=== PATIENT | female | born 1965 | race Caucasian/White ===

== ENCOUNTER → 2016-10-15 | Outpatient (CLI) | payer BC ==
--- NOTE | 2016-10-21 12:04 | MM ---
Reason for exam: additional evaluation requested from prior study. Last mammogram was performed 1 year and 8 months ago. History: Patient is postmenopausal and is nulliparous. Family history of breast cancer in aunt at age 60 and breast cancer in cousin at age 50. Physical Findings: Nurse Summary: 0.5-1cm nodule in the right brast at 1, 2 o'clock, a 0.5cm nodule in the left breast at 9 o'clock (nurse kp). MG 3D Diag Mammo W/Cad ENE Bilateral CC and MLO view(s) were taken. Prior study comparison: October 01, 2015, ultrasound, performed at [facility]. February 19, 2015, mammogram, performed at [facility]. February 19, 2015, ultrasound, performed at [facility]. February 08, 2014, mammogram, performed at [facility]. The breast tissue is heterogeneously dense. This may lower the sensitivity of mammography. No suspicious calcifications are seen. Focal asymmetry in the upper right breast seen on MLO view. ASSESSMENT: Incomplete: need additional imaging evaluation, BI-RAD 0 RECOMMENDATION: Special view mammogram of the right breast. Manage patient on a clinical basis. If lesion persists on supplemental views, image directed ultrasound is recommended. [facility] will attempt to contact patient to return for supplemental views and ultrasound if indicated.
== END | disposition home or self-care (01) ==
LOC: RADMAMWWP 13:05
PROVIDERS: ATTEND Surgery Plastic and Reconstructive Surgery
DX: R92.8 Other abnormal and inconclusive findings on diagnostic imaging of breast (principal)
CPT/HCPCS: G0204; G0279

== ENCOUNTER → 2016-10-27 | Outpatient (CLI) | payer BC ==
--- NOTE | 2016-10-27 11:06 | MM ---
Reason for exam: additional evaluation requested from abnormal screening. Last mammogram was performed less than 1 month ago. History: Patient is postmenopausal and is nulliparous. Family history of breast cancer in aunt at age 60 and breast cancer in cousin at age 50. Physical Findings: Nurse Summary: 0.5cm nodule in the right breast at 1 o'clock and 3 o'clock and a 0.5cm nodule in the left breast at 9 o'clock (nurse mm). MG 3D Follow Up No Charge RT ML, spot compression CC, and spot compression MLO view(s) were taken of the right breast. Prior study comparison: October 15, 2016, bilateral MG 3d diag mammo w/cad ENE. February 19, 2015, mammogram, performed at [facility]. The breast tissue is heterogeneously dense. This may lower the sensitivity of mammography. There is no discrete abnormality including area of concern. These results were verbally communicated with the patient and result sheet given to the patient on 10/27/16. ASSESSMENT: Incomplete: need additional imaging evaluation, BI-RAD 0 RECOMMENDATION: Ultrasound of both breasts. (at palpable) Manage patient on a clinical basis.
--- NOTE | 2016-10-27 11:10 | USB ---
Reason for exam: additional evaluation requested from abnormal screening. History: Patient is postmenopausal and is nulliparous. Family history of breast cancer in aunt at age 60 and breast cancer in cousin at age 50. US Breast Limited BILAT Right breast ultrasound demonstrates no cystic or solid lesion seen. Left breast ultrasound demonstrates no cystic or solid lesion seen. These results were verbally communicated with the patient and result sheet given to the patient on 10/27/16. ASSESSMENT: Negative, BI-RAD 1 RECOMMENDATION: Routine screening mammogram of both breasts in 1 year. Manage patient on a clinical basis.
== END | disposition home or self-care (01) ==
LOC: RADMAMWWP 09:33
PROVIDERS: ATTEND Surgery Plastic and Reconstructive Surgery
DX: R92.8 Other abnormal and inconclusive findings on diagnostic imaging of breast (principal)

== ENCOUNTER → 2017-11-28 | Outpatient (CLI) | payer BC ==
--- NOTE | 2017-11-28 11:17 | MM ---
Reason for exam: additional evaluation requested from prior study. Last mammogram was performed 1 year and 1 month ago. History: Patient is postmenopausal and is nulliparous. Family history of breast cancer in aunt at age 60 and breast cancer in cousin at age 50. Took estrogen for 6 months beginning at age 30. Took progesterone for 6 months beginning at age 30. Physical Findings: Nurse did not find any significant physical abnormalities on exam. MG 3D Diag Mammo W/Cad ENE Bilateral CC and MLO view(s) were taken. Prior study comparison: October 27, 2016, right breast MG 3d follow up no charge RT. October 15, 2016, bilateral MG 3d diag mammo w/cad ENE. The breast tissue is heterogeneously dense. This may lower the sensitivity of mammography. There is chronic nodularity in the right breast. There is no dominant lesion. No significant new findings when compared with previous films. These results were verbally communicated with the patient and result sheet given to the patient on 11/28/17. ASSESSMENT: Benign, BI-RAD 2 RECOMMENDATION: Routine screening mammogram of both breasts in 1 year.
== END | disposition home or self-care (01) ==
LOC: RADMAMWWP 10:02
PROVIDERS: ATTEND Surgery Plastic and Reconstructive Surgery
DX: R92.8 Other abnormal and inconclusive findings on diagnostic imaging of breast (principal)
CPT/HCPCS: 77062; 77066

== ENCOUNTER → 2018-12-27 | Outpatient (CLI) | payer BC ==
--- NOTE | 2018-12-27 14:19 | MM ---
Reason for exam: screening (asymptomatic). Last mammogram was performed 1 year and 1 month ago. History: Patient is postmenopausal and is nulliparous. Family history of breast cancer in aunt at age 60 and breast cancer in cousin at age 50. Took estrogen for 6 months beginning at age 30. Took progesterone for 6 months beginning at age 30. Physical Findings: A clinical breast exam by your physician is recommended on an annual basis and results should be correlated with mammographic findings. MG 3D Screening Mammo W/Cad Bilateral CC and MLO view(s) were taken. Prior study comparison: November 28, 2017, bilateral MG 3d diag mammo w/cad ENE. October 27, 2016, right breast MG 3d follow up no charge RT. The breast tissue is heterogeneously dense. This may lower the sensitivity of mammography. There is chronic nodularity bilaterally. ASSESSMENT: Benign, BI-RAD 2 RECOMMENDATION: Routine screening mammogram of both breasts in 1 year.
== END | disposition home or self-care (01) ==
LOC: RADMAMWWP 09:50
PROVIDERS: ATTEND Surgery Plastic and Reconstructive Surgery
DX: Z12.31 Encounter for screening mammogram for malignant neoplasm of breast (principal)
CPT/HCPCS: 77063; 77067

== ENCOUNTER → 2022-05-19 | Outpatient (CLI) | payer BC ==
[2022-05-19 10:29] VITALS: BP 166/93; PULSE 80; RESP 18; TEMP 99.1
--- NOTE | 2022-05-19 10:37 | P.PAINPG ---
PQRS Measure Charge Sheet Comment: HISTORY OF PRESENT ILLNESS: 57 yr old female as a referral from Dr Bowser presents today w severe and chronic mid back pain secondary to anterolisthesis, DDD, spinal stenosis and facet arthropathy without myelopathy for evaluation. Pt states her pain level is currently at 6/10 in intensity, constant, localized in the mid aspect of the thoracic spine, sharp in character w shooting towards the L shoulder. Pain is provoked by twisting/ bending. Pain is alleviated by meds (Tramadol, Ibu, Tyl), topicals, ice, heat, PT x 8 wks in 2021, use of a TENS unit, laying supine, repositioning and rest. PMH: HTN, Hyperlipidemia, Asthma PSH: L5-S1 Decompression w Laminectomy (2015), C5-C6-C7 Hardware (2010), MVP SH: Hx of tobacco use (Quit 21 yrs ago), occasional ETOH use, No illicit drug use. FH: Mo- CHF. Fa- CHF/ DM. All: See list Meds: See list REVIEW OF ORGAN SYSTEMS: CONSTITUTIONAL: No fevers or chills. No recent weight loss. NEUROLOGICAL: + numbness and tingling along the distal extremities. No seizure disorders or headaches. MUSCULOSKELETAL: + pain PSYCHIATRIC: Denies current depression or suicidal thoughts. Physical Examinations : Constitutional : Cooperative , not in acute distress . Neurologic : Cranial nerve II to XII intact. No focal neurological deficits. Psychiatric : alert & oriented x 3. Matching mood & appropriate affect. Judgment & insight intact. Musculoskeletal : Cervical Spine Motor strength in the deltoid and biceps: Normal right side. Normal Left side Motor strength biceps and the wrist extensors: Normal right side . Normal left side Motor strength in the triceps muscle: Normal right side. Normal left side Deep tendon reflexes: Normal at the biceps. Normal at Brachioradialis. Normal at triceps Vertebral body tenderness to deep palpation over Cervical facet loading test: positive bilaterally Spurling test: positive bilaterally Neck distraction test: positive bilaterally Cheli sign: positive bilaterally Thoracic spine Vertebral body TTP over T9 Lumbar spine Motor strength lower extremities ,thigh and legs 5/5 Right side , 5/5 Left side Deep tendon reflexes : Normal Knee Jerk. Normal Ankle Jerk Vertebral body tenderness over Lumbar facet Loading Test: positive Right / positive Left Range of motion of the lumbar spine Flexion 30 degrees, extension 10 degrees Straight Leg Raise test: Left/ Right positive at degree Nael test: positive right / positive left. Severe tenderness over the Sacroiliac joint on the Right / Left sides Gaenslen test: positive bilaterally Seated flexion test: positive bilaterally. Sacral spine : Severe tenderness over the Sacroiliac joint: right side / left side Range of motion: Flexion of the lumbar spine <60 degrees Range of motion: Extension of the lumbar spine <20 degrees Gaenslen's Test positive Tim's Test positive Nael test: positive right side / left side Thigh Thrust Test Sacral Thrust Test Imaging: MRI without contrast of the thoracic spine from 03/26/22 reviewed Assessment/ Plan : Thoracic DDD Recommendation of CODIE T9-T10 #1. May need a series of injections, up to 3 within a six-month timeframe, for optimal pain relief. Risks, benefits of procedure discussed and patient verbalized understanding. Admits to aspirin or anti- coagulant use or medical history of diabetes. Protocol for discontinuation/ continuation of medications patricia procedure discussed. All questions answered. I have spent greater than 30 minutes on patient care today. Dr Dunaway was available by phone for the evaluation of this patient. The time was used to review the medical records including relevant urine studies and Prescription history (MAPs), review of the available imaging, evaluation and examination of the patient, coordination of care with the medical staff and if applicable referring physicians, as well as creation of the medical record PQRS Narrative: Smoking Status Former smoker Home Medications: Ambulatory Orders Albuterol Inhaler [Ventolin Hfa Inhaler] 1 - 2 puff INHALATION RT-Q4H PRN 04/15/16 Amitriptyline HCl [Elavil] 50 mg PO HS 04/15/16 Atorvastatin [Lipitor] 20 mg PO HS 04/15/16 Bisoprolol Fumarate [Zebeta] 10 mg PO HS 04/15/16 Calcium Carbonate [Calcium] 1 tab PO DAILY 04/15/16 Montelukast [Singulair] 10 mg PO DAILY 04/15/16 Multivitamins, Thera [Multivitamin (formulary)] 1 tab PO DAILY 04/15/16 NIFEdipine XL [Procardia XL] 30 mg PO DAILY PRN 04/15/16 Pramipexole [Mirapex] 0.5 mg PO HS 04/15/16 Pseudoephedrine [Sudafed] 30 mg PO BID 04/15/16 Vitamin B Complex 1 cap PO DAILY 04/15/16 Vitamin E (Dl,Tocopheryl Acet) [Vitamin E (400 Iu = 180 mg)] 400 unit PO DAILY 04/15/16 hydroCHLOROthiazide 25 mg PO BID 04/15/16 tiZANidine [Zanaflex] 4 mg PO BID PRN 04/15/16 HYDROcodone/APAP 7.5-325MG [[place] 7.5-325] 1 each PO Q6HR PRN #90 tab 04/22/16 diazePAM [Valium] 5 mg PO TID PRN #90 tab 04/22/16 Controlled Substance Measures - Controlled Substance Measures Is patient prescribed a controlled substance at discharge?: No
== END ==
LOC: PNWHC3 09:46
PROVIDERS: ATTEND Specialist
DX: M51.34 Other intervertebral disc degeneration, thoracic region (principal); Z79.01 Long term (current) use of anticoagulants; E11.9 Type 2 diabetes mellitus without complications; Z79.4 Long term (current) use of insulin; Z87.891 Personal history of nicotine dependence; Z88.2 Allergy status to sulfonamides; Z91.048 Other nonmedicinal substance allergy status
CPT/HCPCS: 99211

== ENCOUNTER 2022-06-24 10:41 | Day surgery (SDC) | payer BC ==
[2022-06-22 13:38] VITALS: BMI 24.7
[~2022-06-24 10:41] MED LIST: LACTATED RINGERS 1,000 ML IV SCH
[2022-06-24 11:17] VITALS: TEMP 98.6
[2022-06-24] MEDS ORDERED: fentaNYL (PF) 50 MCG/ML 2 ML AMP ONE (11:48)
[2022-06-24] MEDS ORDERED: ROPIVACAINE 5 MG/ML 20 ML AMPULE ONE (11:48)
[2022-06-24] MEDS ORDERED: IOPAMIDOL M200 10 ML VIAL ONE (11:48)
[2022-06-24] MEDS ORDERED: DEXAMETHASONE SOD PHOSPHATE 10 MG/ML 1 ML VIAL ONE (11:48)
[2022-06-24] MEDS ORDERED: MIDAZOLAM 2 MG/2 ML VIAL ONE (11:48)
--- NOTE | 2022-06-24 12:08 | P.PCN ---
Date of Procedure: 06/24/22 Surgeon: Davida Ledezma Pathology: none sent Condition: stable Disposition: PACU Description of Procedure: PROCEDURE 1. Thoracic epidural steroid injection under fluoroscopic guidance, T9 -T10 paramedian approach. 2. Thoracic epidurogram. : PREOPERATIVE DIAGNOSIS: Thoracic radiculopathy, Thoracic spondylosis without myelopathy POSTOPERATIVE DIAGNOSIS: : Same as above ANESTHESIA: Local anesthesia with 1% lidocaine and IV moderate conscious sedation with Versed and Fentanyl . PROCEDURE INDICATION: The patient with neck pain and radiculopathy unresponsive to conservative treatment consents for procedure. PROCEDURE DESCRIPTION / TECHNIQUE: The patient was seen and identified in the preoperative area. Risks, benefits, complications, including but not limited to infections ,bleeding , allergic reactions to the medications ,and not complete pain relief, and alternatives were discussed with the patient, the patient agreed to proceed with the procedure and signed the consent. Patient was taken to the OR and time out was completed. The patient was placed in the prone position on the procedure table. A pillow was placed under the patients chest to increase the flexion of the cervical spine . The cervical area was prepped and draped in the usual sterile fashion. Vital signs were closely monitored during the procedure. Conscious sedation was used during the procedure to decrease patients anxiety. Using anterior-posterior fluoroscopy, the T9-10 interlaminar space was identified and the skin over this site was marked and then infiltrated with 1% lidocaine subcutaneously. Subsequently, a 20-gauge 3-1/2-inch Tuohy epidural needle was inserted and advanced toward the epidural space by means of loss of resistance to air technique and guided by AP and lateral fluoroscopy. The needle tip contacted the lamina of T10 vertebra first, then it was walked off bone and into the epidural space using the loss of to air and fluoroscopic guidance to identify the epidural space. The correct needle position in the epidural space was verified with the injection of 1 mL of the water soluble contrast dye Isovue and observing an excellent epidurogram with the epidural spread of the dye, after negative aspiration for blood and CSF and in the absence of paresthesias. Again after negative aspiration, a 6 ml mixture containing 10 mg of Decadron, 1 mL of ropivacaine 0.5% and 3 ml of preservative free Normal Saline solution was injected and a washout of epidurogram was seen. Needle was withdrawn intact, skin was cleansed, and bandages were applied. A copy of the needle placement picture was saved to the fluoroscopy machine. Sedation time:4697-3988
[2022-06-24] MEDS ORDERED: IV FLUID CONTINUATION 1,000 ML IV ONE (12:10)
[2022-06-24 12:23] VITALS: RESP 16
[2022-06-24 12:36] VITALS: BP 128/78; PULSE 68
--- NOTE | 2022-06-24 13:08 | FL ---
EXAMINATION TYPE: FL guided pain mgmt statistic DATE OF EXAM: 06/24/2022 HISTORY: Fluoroscopy time 38 seconds of fluoroscopy provided. IMPRESSION: 1. Fluoroscopy time.
== END 2022-06-24 12:39 | disposition home or self-care (01) ==
LOC: ORPAIN 10:41
PROVIDERS: ATTEND Anesthesiology
DX: M47.24 Other spondylosis with radiculopathy, thoracic region (principal); I10 Essential (primary) hypertension; I34.1 Nonrheumatic mitral (valve) prolapse; Z88.2 Allergy status to sulfonamides
CPT/HCPCS: 62321; J2250; J1100; J3010; Q9966; J2795

== ENCOUNTER → 2022-07-14 | Outpatient (CLI) | payer BC ==
[2022-07-14 14:44] VITALS: BP 179/71; PULSE 75; RESP 18
--- NOTE | 2022-07-14 15:35 | P.PAINPG ---
PQRS Measure Charge Sheet Comment: A 57 yr old female with a history of severe and chronic mid back pain secondary to thoracic DDD and spondylosis with facet arthropathy without myelopathy presents today for evaluation s/p TESI T9-T10. Pt states she experienced 60 % pain relief x 3 wks s/p procedure. Pain level is currently at 3 /10 in intensity, constant, mid back, pressure in charcter wihtout shooting pain. Pain is provoked by twisting, bending and lifting. Pain is alleviated with PT in Feb 2022, home exercise and yoga daily, chiropractic treatments in the past, medications (Tramadol, Zanaflex), topicals, ice, repositioning and rest. Interventional pain procedures completed include LING T9-T10 Patient is currently on Tramadol, Zanaflex Patient denies any side effects of the medication(s), denies excessive drowsiness or sleepiness, denies suicidal ideation and reports that the current pain medication is helping to control the pain and improve activities of daily living. Patient denies any motor or sensory deficits. Patient denies any fever or night sweats, denies any change in the bowel movements or urination. Physical Examination: -Constitutional: Cooperative. Not in acute distress . - Neurologic: Cranial nerve II to XII intact. No focal neurological deficits. - Psychatric: Alert & oriented x 3. Matching mood & appropriate affect. Judgment and insight intact. - Musculoskeletal: Cervical spine: Muscle bulk/ tone/ strength in the bilateral upper extremities normal Vertebral body tenderness to palpation over Spurling test positive Distraction test positive Facet loading test positive Thoracic spine Muscle bulk / tone/ strength in the bilateral paraspinal muscles normal Vertebral body tender to palpation over T9 Facet loading test positive Lumbar spine: Motor bulk/ tone/ strength lower extremities , thigh and legs : 5/5 Deep tendon reflexes : Normal Knee Jerk. Normal Ankle Jerk . Vertebral body tenderness to palpation over Lumbar Facet Loading Test positive Straight Leg Raise: positive at 30 degrees right side/ left side Gaenslen's Test positive Sacral spine : Severe tenderness over the Sacroiliac joint: right side / left side Range of motion: Flexion of the lumbar spine <60 degrees Range of motion: Extension of the lumbar spine <20 degrees Gaenslen's Test positive Nael test: positive right side / left side Thigh Thrust Test Sacral Thrust Test Assessment and plan: Chronic mid back pain secondary to thoracic DDD, spondylosis with facet arthropathy without myelopathy Pt exhibited sufficient and substantial pain relief s/p procedure. Will manage residual pain w home modalities and may return to our clinic on an as needed basis. All patient questions answered I have spent less than 30 minutes on patient care today. Dr Dunaway was available by phone for the evaluation of this patient. The time was used to review the medical records including relevant urine studies and Prescription history (MAPs), review of the available imaging, evaluation and examination of the patient, coordination of care with the medical staff and if applicable referring physicians, as well as creation of the medical record - Pain Location Back Non-Pharmacological Interventions: Chiropractic Treatment, Home Exercise, Ice, Inactivity, Massage, Physical Therapy, Position/Reposition, Sitting, Stretching Pharmacological Interventions: Epidural, PRN Medication, Topical Medication PQRS Narrative: Smoking Status Former smoker Hx Alcohol Use (MH) No Home Medications: Ambulatory Orders Albuterol Inhaler [Ventolin Hfa Inhaler] 1 - 2 puff INHALATION RT-Q4H PRN 04/15/16 Atorvastatin [Lipitor] 40 mg PO HS 04/15/16 Bisoprolol Fumarate [Zebeta] 10 mg PO HS 04/15/16 Montelukast [Singulair] 10 mg PO DAILY 04/15/16 Pramipexole [Mirapex] 1.5 mg PO HS 04/15/16 Pseudoephedrine [Sudafed] 30 mg PO BID 04/15/16 Vitamin B Complex 1 cap PO DAILY 04/15/16 Vitamin E (Dl,Tocopheryl Acet) [Vitamin E (400 Iu = 180 mg)] 400 unit PO DAILY 04/15/16 hydroCHLOROthiazide 25 mg PO BID 04/15/16 tiZANidine [Zanaflex] 4 mg PO BID PRN 04/15/16 Losartan Potassium 100 mg PO DAILY 06/22/22 Controlled Substance Measures - Controlled Substance Measures Is patient prescribed a controlled substance at discharge?: No
== END ==
LOC: PNWHC3 13:59
PROVIDERS: ATTEND Specialist
DX: M47.814 Spondylosis without myelopathy or radiculopathy, thoracic region (principal); M51.84 Other intervertebral disc disorders, thoracic region; G89.29 Other chronic pain; M54.9 Dorsalgia, unspecified; Z88.2 Allergy status to sulfonamides; Z91.048 Other nonmedicinal substance allergy status; Z87.891 Personal history of nicotine dependence
CPT/HCPCS: 99211

== ENCOUNTER 2022-09-23 06:00 | Day surgery (SDC) | payer BC ==
[2022-09-23] MEDS ORDERED: LIDOCAINE 1% (10MG/ML) FOR IV START INTRADERMA PRN (06:11)
[2022-09-23] MEDS ORDERED: LACTATED RINGERS 1,000 ML IV SCH (06:11)
[2022-09-23 06:48] VITALS: TEMP 97.7
[2022-09-23] MEDS ORDERED: MIDAZOLAM 2 MG/2 ML VIAL ONE (07:14)
[2022-09-23] MEDS ORDERED: fentaNYL (PF) 50 MCG/ML 2 ML AMP ONE (07:14)
[2022-09-23] MEDS ORDERED: IOPAMIDOL M200 10 ML VIAL ONE (07:14)
[2022-09-23] MEDS ORDERED: methylPREDNISolone ACETATE 80 MG/ML 1 ML VIAL ONE (07:14)
[2022-09-23] MEDS ORDERED: IV FLUID CONTINUATION 1,000 ML IV ONE ×2 (07:25)
--- NOTE | 2022-09-23 07:26 | P.PCN ---
Date of Procedure: 09/23/22 Procedure(s) Performed: PREOPERATIVE DIAGNOSIS: 1-thoracic Degenerative Disc Diseases 2-thoracic spondylosis with Facet arthropathy without myelopathy. 3-thoracic radiculopathy POSTOPERATIVE DIAGNOSIS: Same as preop diagnosis. PROCEDURE 1. Thoracic epidural steroid injection under fluoroscopic guidance at the T9-10 level. (Fluoroscopy imaging was available in radiology department) 2. Thoracic epidurogram. ANESTHESIA: moderate sedation with intravenous Versed 2 mg ,and fentanyle 50 Mcg Sedation start time : 716 Sedation end time : 723 EBL: Minimal PROCEDURE INDICATION: The patient with mid back pain and radiculitis symptoms unresponsive to conservative treatment. Fluoroscopy was used to optimize visualization of the needle placement and to maximize safety. PROCEDURE DESCRIPTION / TECHNIQUE: The patient was seen and identified in the preoperative area. Risks, benefits, complications including but not limited to infections ,bleeding ,allergic reaction to the medications ,nerve damage and not complete pain releife , and alternatives were discussed with the patient. The patient agreed to proceed with the procedure and signed the consent. IV was started, and vital signs were stable. Patient was taken to the OR and time out was completed. The patient was placed in the prone position on procedure table and a pillow was placed under the abdomen to reduce lumbar lordosis. The lumbosacral area was prepped and draped in the usual sterile fashion.ere closely monitored during the procedure. Conscious sedation was used during the procedure to decrease patients anxiety. Vital signs was monitered during the entire procedure. Using anterior-posterior fluoroscopy, the T9-10 interlaminar space was identified and the skin over this site was marked and then infiltrated with 1% lidocaine subcutaneously. Subsequently, a 20-gauge Tuohy epidural needle was inserted and advanced toward the epidural space using the ``Loss of resistance technique and guided by AP and lateral fluoroscopy. The correct needle position in the epidural space was verified with the injection of 2 mL of the water soluble contrast dye Isovue 200 contrast and observing an excellent epidurogram with the epidural spread of the dye, after negative aspiration for blood and CSF and in the absence of paresthesias. Again after negative aspiration, a 6 ml mixture containing 80 mg of Depo-medrol ( Preservetive Free ), and 2 ml of preservative free Normal Saline, and 2 ml of preservative free lidocaine 1% solution was injected and a washout of epidurogram was seen. Needle was withdrawn intact, skin was cleansed, and bandages were applied. COMPLICATIONS: None DISPOSITION / PLANS: The patient was placed in a supine position and transferred to the recovery area in a stable condition for observation. There was no evidence of lower extremity motor or sensory deficit after the procedure. Patient was discharged from the recovery room after meeting discharge criteria. Home discharge instructions were given to the patient by the staff. The patient was reexamined prior to discharge. The patient will schedule a follow up in the clinic in 2-4 weeks.
[2022-09-23 07:57] VITALS: BP 105/60; PULSE 68; RESP 18
--- NOTE | 2022-09-23 08:18 | FL ---
Intraoperative/procedural fluoroscopic services were provided. Total fluoroscopy time is 2.5 seconds with a total of 1 submitted images to PACS. Please see the operative/procedural note for further deta ils. DAP: [phone]
== END 2022-09-23 07:59 | disposition home or self-care (01) ==
LOC: ORPAIN 06:00
PROVIDERS: ATTEND Specialist
DX: M51.14 Intervertebral disc disorders with radiculopathy, thoracic region (principal); M47.24 Other spondylosis with radiculopathy, thoracic region; Z88.2 Allergy status to sulfonamides
CPT/HCPCS: 62321; J2250; J1040; J3010; Q9966

== ENCOUNTER → 2022-10-11 | Outpatient (CLI) | payer BC ==
[2022-10-11 14:04] VITALS: BP 161/94; PULSE 77; RESP 18; TEMP 99
--- NOTE | 2022-10-11 14:14 | P.PN ---
Subjective Progress Note Date: 10/11/22 This is a follow-up visit for this 13 years old female with a chronic history of severe midback pain, his maria g were thoracic degenerative disc disease and thoracic facet arthropathy, previously we have done thoracic epidural steroid injection at T9-10, x2 , she continued to have severe midback pain pain is constant and increases with any activity interfere with the quality of life, localized in the mid back area patient denies any motor or sensory deficit she denies any fever or night sweats she denies any change in the bowel movement or urination, she continued to use Ultram and Tylenol and she uses a lidocaine, she continued to use ice and she's done physical therapy and she is doing home exer cises , yoga, and guided exercises at home Objective - Vital Signs Vital signs: Vital Signs Temp 99.0 F 10/11/22 13:57 Pulse 77 10/11/22 13:57 Resp 18 10/11/22 13:57 BP 161/94 10/11/22 13:57 Pulse Ox 97 10/11/22 13:57 FiO2 Intake & Output 10/10/22 10/11/22 10/11/22 18:59 06:59 18:59 Weight 66.678 kg - Exam Physical Examinations : -Constitutiona : Cooperative , not in acute distress . -HEENT : nech : supple , no Lymphadenopathy , normal thyroid size . : eyes : no ptosis , no icterus, no photophobia . - neurologic : Cranial nerve II to XII intact , no focal neurological deffecit . -psychatric : alert , oriented X 3 , appropriate affect , intact judgment and insight . -Lymphatic : no Lymphadenopathy . - musculoskeltal : Cervical Spine motor stregnth in the deltoid and biceps, normal right side , normal Left side Thoracic spine= normal motor strength. Positive facet loading test mid to lower thoracic area Lumber spine moter stegnth lower extremities ,thigh and legs 5/5 Right side , 5/5 Left side MRI thoracic spine done at [facility] showed multilevel thoracic degenerative disc disease and multilevel thoracic facet arthropathy Assessment and Plan Plan: Assessment and plan= chronic mid back pain secondary to thoracic degenerative disc disease , thoracic spondylosis with thoracic facet arthropathy . Patient continued to have severe mid back pain after thoracic epidural steroid injections 2 And will be good candidate for diagnostic medial branch block thoracic area T8- T9 ,and T9-10 bilaterally and possible RFA Time with Patient: Less than 30
== END ==
LOC: PNWHC3 13:34
PROVIDERS: ATTEND Specialist
DX: M51.34 Other intervertebral disc degeneration, thoracic region (principal); M47.814 Spondylosis without myelopathy or radiculopathy, thoracic region; G89.29 Other chronic pain; Z91.048 Other nonmedicinal substance allergy status; Z88.2 Allergy status to sulfonamides; Z87.891 Personal history of nicotine dependence
CPT/HCPCS: 99211

== ENCOUNTER → 2022-12-08 | Outpatient (CLI) | payer BC ==
[2022-12-08 14:22] VITALS: BP 138/82; PULSE 73; RESP 18; TEMP 97.5
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
== END ==
LOC: PNWHC3 13:15
PROVIDERS: ATTEND Specialist
DX: M51.34 Other intervertebral disc degeneration, thoracic region (principal); M47.814 Spondylosis without myelopathy or radiculopathy, thoracic region; G89.29 Other chronic pain; Z88.2 Allergy status to sulfonamides; Z91.048 Other nonmedicinal substance allergy status; Z87.891 Personal history of nicotine dependence
CPT/HCPCS: 99211

== ENCOUNTER 2022-12-31 09:43 | Day surgery (SDC) | payer BC ==
[2022-12-28 12:02] VITALS: BMI 25.2
[~2022-12-31 09:43] MED LIST changes: +LIDOCAINE 1% (10MG/ML) FOR IV START INTRADERMA PRN
[2022-12-31 10:17] VITALS: TEMP 97.4
[2022-12-31] MEDS ORDERED: MIDAZOLAM 2 MG/2 ML VIAL ONE (11:06)
[2022-12-31] MEDS ORDERED: ROPIVACAINE 5 MG/ML 20 ML AMPULE ONE (11:06)
[2022-12-31] MEDS ORDERED: methylPREDNISolone ACETATE 40 MG/ML 1 ML VIAL ONE (11:06)
[2022-12-31] MEDS ORDERED: fentaNYL (PF) 50 MCG/ML 2 ML AMP ONE (11:06)
[2022-12-31] MEDS ORDERED: IV FLUID CONTINUATION 650 ML IV ONE (11:31)
--- NOTE | 2022-12-31 11:31 | P.PCN ---
Date of Procedure: 12/31/22 Procedure(s) Performed: PREOPERATIVE DIAGNOSIS : 1- Thoracic spondylosis with Facet Arthropathy without myelopathy . 2- Thoracic degenerative disc disease POSTOPERATIVE DIAGNOSIS: 1- Thoracic spondylosis with Facet Arthropathy without myelopathy . 2- Thoracic degenerative disc disease PROCEDURE: Diagnostic bilateral T8, T9, T10 medial branch block under fluoroscopy guidance(fluoroscopy images available in the radiology Department ) ( To target the facet joint between Bilateral T8-9 ,T9-10 )# 2nd ANESTHESIA:, Monitored anesthesia care as per anesthesia department. EBL: Minimal COMPLICATION: None PROCEDURE INDICATION: Chronic low back pain secondary to Facet arthropathy unresponsive to conservative treatment. PROCEDURE DESCRIPTION: the patient was seen and identified in the preop holding area , risks and benefits and possible complications of the procedure and alternative were discussed with the patient, and the patient agreed to proceed with the procedure and signed the consent and vital signs monitored during the procedure and fluoroscopy was used to maximize the benefit and accuracy of the needle placement, and sedation was given to decrease patient an xiety, patient was taken to the procedure room and placed in prone position vital signs monitored in the back prepped with chlorhexidine X3 then under strict sterile technique using a right oblique fluoroscopy ,the junction of the transverse process and the superior articulating process of the right T8, T9 ,T10 vertebra which corresponding to the fluoroscopy image of the eye of the Donald dog on the block side for the medial branches and subsequently , after local infiltration of skin and subcu tissuies with Ropivacaine 0.5 % , one mL at each level ,then 22-gauge Quincke-type needles , 3 needle was used , each one of them placed at the junction of the base of the transverse process and the superior articular process at the appropriate level, and the needle was advanced until the periosteum contacted, needle placement confirmed with AP oblique and lateral view and after appropriate needle placement confirmed, and after negative aspiration for heme and CSF and there was no paresthesia 1-1/2 mL of Ropivacaine 0.5% mixed with 20 mg Depo-Medrol , then half mL injected at each level after negative aspiration the needle subsequently removed and the same procedure repeated for the left side at left side at T8- T9 ,T10 levels. At the end of the procedure and the needles removed and a bandage applied after the skin was cleaned the cleaning solution patient taken to recovery room in stable condition and monitors in the recovery room for 20-30 minutes and discharged home in stable condition after discharge criteria met and patient will follow up with the pain clinic in 2-4 weeks
[2022-12-31 11:37] VITALS: RESP 12
[2022-12-31 11:46] VITALS: BP 124/82; PULSE 61
--- NOTE | 2022-12-31 11:54 | FL ---
EXAMINATION TYPE: FL guided pain mgmt statistic DATE OF EXAM: 12/31/2022 HISTORY: Fluoroscopy time Total dose area product (DAP) in uGy*m?, mGy*cm? (or similar): 0.92902 IMPRESSION: 1. Fluoroscopy time.
== END 2022-12-31 12:01 | disposition home or self-care (01) ==
LOC: ORPAIN 09:43
PROVIDERS: ATTEND Specialist
DX: M51.34 Other intervertebral disc degeneration, thoracic region (principal); M47.814 Spondylosis without myelopathy or radiculopathy, thoracic region; G89.29 Other chronic pain; E78.5 Hyperlipidemia, unspecified; I34.1 Nonrheumatic mitral (valve) prolapse; J45.909 Unspecified asthma, uncomplicated; K21.9 Gastro-esophageal reflux disease without esophagitis; Z88.2 Allergy status to sulfonamides; Z79.899 Other long term (current) drug therapy
CPT/HCPCS: 64490; 64491 ×2; 99152; J2250; J1030; J3010; J2795

== ENCOUNTER → 2023-01-26 | Outpatient (CLI) | payer BC ==
[2023-01-26 14:29] VITALS: BP 154/89; PULSE 70; RESP 16; TEMP 98.5
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
== END ==
LOC: PNWHC3 13:25
PROVIDERS: ATTEND Specialist
DX: M51.34 Other intervertebral disc degeneration, thoracic region (principal); M47.814 Spondylosis without myelopathy or radiculopathy, thoracic region; G89.29 Other chronic pain; Z87.891 Personal history of nicotine dependence; Z91.048 Other nonmedicinal substance allergy status; Z88.2 Allergy status to sulfonamides
CPT/HCPCS: 99211

== ENCOUNTER 2023-02-11 06:39 | Day surgery (SDC) | payer BC ==
[2023-02-04 15:06] VITALS: BMI 26.4
[2023-02-11] MEDS ORDERED: LACTATED RINGERS 1,000 ML IV ONE ×2 (06:54→08:28)
[2023-02-11 06:57] VITALS: TEMP 98.1
[2023-02-11] MEDS ORDERED: methylPREDNISolone ACETATE 40 MG/ML 1 ML VIAL ONE (07:35)
[2023-02-11] MEDS ORDERED: MIDAZOLAM 2 MG/2 ML VIAL ONE (07:35)
[2023-02-11] MEDS ORDERED: fentaNYL (PF) 50 MCG/ML 2 ML AMP ONE (07:35)
[2023-02-11] MEDS ORDERED: ROPIVACAINE 5 MG/ML 20 ML AMPULE ONE (07:35)
--- NOTE | 2023-02-11 08:25 | P.PCN ---
Date of Procedure: 02/11/23 Procedure(s) Performed: PREOPERATIVE DIAGNOSIS: 1-thoracic Spondylosis with Facet Arthropathy without myelopathy. 2- thoracic degenerative disc disease. POSTOPERATIVE DIAGNOSIS: 1-thoracic Spondylosis with Facet Arthropathy without myelopathy. 2-thoracic degenerative disc disease. PROCEDURES : Bilateral Radiofrequency thermocoagulation, T8,T9 ,T10 medial branch, with fluoroscopic guidance (fluoroscopy images available in the radiology department) ( to denervate the facet joint at bilateral T8-9, T9-10 levels ). ANESTHESIA: Monitored anesthesia care as per anesthesia department . EBL: Minimal PROCEDURE INDICATION: The patient with low back pain secondary to lumbar facet arthropathy who had more than 50% relief of her pain with previous diagnostic lumbar medial branch block with bupivacaine. PROCEDURE DESCRIPTION / TECHNIQUE: The patient was seen and identified in the preoperative area. Risks, benefits, complications, including but not limited to risk of infection ,bleeding , allergic reactions to the medications and no complete pain releife , and alternatives were discussed with the patient, the patient agreed to proceed with the procedure and signed the consent. IV was started. Vital signs remained stable throughout the procedure. Patient was taken to the OR and time out was completed. The patient was placed in the prone position on the procedure table. The lumber area was prepped and draped in the usual sterile fashion. . Vital signs were closely monitored during the procedure .IV sedation was used during the procedure to decrease patients anxiety. Using AP and then oblique fluoroscopy, the ``eye of the Donald dog corresp onding to the connection between the superior and transverse articular processes of right T8, T9,T10 were identified, marked, and localized with 1% lidocaine. Subsequently, a 20 -th radiofrequency cannula with a 10-mm active tip was advanced guided by fluoroscopy to each of the``eyes of the Donald dog at right T8,T9, T10. Each site then underwent sensory testing at 50 Hz and 0 to 1 volt and motor testing at 2.5 Hz and 0 to 3 volt with local stimulation, but no radicular symptoms down the legs. Thereafter each sites underwent radiofrequency thermocoagulation at 80 degrees celsius for 90 seconds after injecting 0.5 ml of PF Ropivacaine 1ml, then after the thermocoagulation done , 1 ml of the block solution containing Depo-Medrol 20 mg and 3 ml of Ropivacaine 0.5% was injected at the right T8,T9,T10 , levels after negative aspiration of CSF and blood and with no paresthesias. Cannulas were retracted while injecting lidocaine 1% until the needle is out. The same procedure was repeated at the level of Left T8 ,T9, T10 levels. At the end of the procedure, the skin was cleansed and bandages were applied. COMPLICATIONS: No acute complications. DISPOSITION / PLANS: The patient was placed in a supine position and transferred to the recovery area in a stable condition for observation and was discharged from the recovery room after meeting discharge criteria. Home discharge instructions given to the patient by the staff. The patient was reexamined prior to discharge. The patient will schedule a follow up in the clinic in 2-4 weeks.
[2023-02-11 08:41] VITALS: BP 126/58; PULSE 67; RESP 16
--- NOTE | 2023-02-11 09:20 | FL ---
Intraoperative/procedural fluoroscopic services were provided for bilateral radiofrequency thoracic. Total fluoroscopy time is 61.5 seconds with a total of 9 submitted images to PACS. Total DAP 0.98777 mGym2. Please see the operative note for further details.
== END 2023-02-11 08:58 | disposition home or self-care (01) ==
LOC: ORPAIN 06:39
PROVIDERS: ATTEND Specialist
DX: M51.34 Other intervertebral disc degeneration, thoracic region (principal); M47.814 Spondylosis without myelopathy or radiculopathy, thoracic region; I10 Essential (primary) hypertension; E78.5 Hyperlipidemia, unspecified; K21.9 Gastro-esophageal reflux disease without esophagitis; Z88.2 Allergy status to sulfonamides; Z79.899 Other long term (current) drug therapy
CPT/HCPCS: 64633; 64634 ×2; J2250; J1030; J3010; J2795

== ENCOUNTER → 2023-03-03 | Outpatient (CLI) | payer BC ==
[2023-03-03 14:10] VITALS: BP 167/101; PULSE 76; RESP 15; TEMP 98.1
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
== END ==
LOC: PNWHC3 13:33
PROVIDERS: ATTEND Specialist
DX: M51.34 Other intervertebral disc degeneration, thoracic region (principal); M47.814 Spondylosis without myelopathy or radiculopathy, thoracic region; G89.29 Other chronic pain; Z87.891 Personal history of nicotine dependence; Z91.048 Other nonmedicinal substance allergy status; Z88.2 Allergy status to sulfonamides
CPT/HCPCS: 99211

== ENCOUNTER → 2023-09-07 | Outpatient (CLI) | payer BC ==
[2023-09-07 10:29] VITALS: BP 165/91; PULSE 62; RESP 16; TEMP 97.1
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
== END ==
LOC: PNWHC3 08:35
PROVIDERS: ATTEND Specialist
DX: M51.34 Other intervertebral disc degeneration, thoracic region (principal); M47.814 Spondylosis without myelopathy or radiculopathy, thoracic region; G89.29 Other chronic pain; Z87.891 Personal history of nicotine dependence; Z91.048 Other nonmedicinal substance allergy status; Z88.2 Allergy status to sulfonamides
CPT/HCPCS: 99211

== ENCOUNTER 2023-10-07 05:55 | Day surgery (SDC) | payer BC ==
[2023-10-05 15:52] VITALS: BMI 26.7
[2023-10-07] MEDS: LACTATED RINGERS 1,000 ML IV SCH (06:48)
[2023-10-07] MEDS ORDERED: MIDAZOLAM 2 MG/2 ML VIAL ONE (06:55)
[2023-10-07] MEDS ORDERED: fentaNYL (PF) 50 MCG/ML 2 ML AMP ONE (06:55)
[2023-10-07] MEDS ORDERED: ROPIVACAINE 5MG/ML 20ML VIAL ONE (07:00)
[2023-10-07 07:11] VITALS: TEMP 98.8
[2023-10-07] MEDS: LACTATED RINGERS 1,000 ML IV ONE (07:57)
--- NOTE | 2023-10-07 08:19 | FL ---
EXAMINATION TYPE: FL guided pain mgmt statistic DATE OF EXAM: 10/07/2023 HISTORY: Fluoroscopy time Total dose area product (DAP) in uGy*m?, mGy*cm? (or similar): 0. IMPRESSION: 1. Fluoroscopy time.
[2023-10-07 08:26] VITALS: BP 145/78; PULSE 67; RESP 18
--- NOTE | 2023-10-07 12:28 | P.PCN ---
Description of Procedure: Preprocedure diagnosis. 1. Thoracic spondylosis with facet joint arthropathy without myelopathy. 2. Thoracic degenerative disc disease. Postprocedure diagnosis. 1. Thoracic spondylosis with facet joint arthropathy without myelopathy. Space 2. Thoracic degenerative disc disease. Procedure.Bilateral radiofrequency thermocoagulation T8, T9, T10 medial branch, with fluoroscopic guidance (fluoroscopy images are available in the radiology department) (to Denervate the facet joint at the T9-10, T10-11 levels) Anesthesia. Monitored anesthesia care as per anesthesia department, moderate sedation with intravenous Versed 2 mg and fentanyl 100 g and local infiltration with ropivacaine 0.5%. Continuous verbal communication was maintained with patient. EBL minimal. Procedure indication. The patient with back pain secondary to thoracic facet arthropathy who he had more than 50% relief of her pain with previous diagnostic thoracic medial branch block with local anesthetics.The patient was seen and identified in the preoperative area. Risks, Benefits, complications, including but not limited to risk of infection, bleeding, ALLERGIC reaction to the medications and no complete pain relief and alternatives were discussed with the patient, the patient admitted to proceed with the procedure and signed the consent. Procedure description/technique. Patient was taken to the OR and timeout was completed. The patient was placed in prone position on the procedure table. The thoracic area was prepped and draped in the usual sterile fashion. After injecting 5 ml of 1% Lidocaine subcutaneously 18-gauge 100 mm radiofrequency cannula with a 10 mm active tip was advanced. The injection level is confirmed with the use of the AP view before obtaining the trajectory view. The fluoroscope is then obliqued 10 degrees contralaterally and 10 degrees caudally from the AP view, so that the radiofrequency probe is positioned along the course of the medial branch nerve. The radiofrequency needle is placed parallel to the fluoroscopic beam with the use of this trajectory approach to target the superior lateral edge of the transverse process. The needle tip is advanced safely by alternating between AP and lateral views until it contacts and bisects the superior lateral edge of the transverse process. The needle tip is then walked off just superior and lateral to the edge of the transverse process keeping in mind so that the needle tip in line with the superior lateral edge of the transverse process to avoid the lung. On the right side to target T8 medial branch, the needle was placed in the superior lateral part of T9 transverse process, to target T9 medial branch, the needle was placed in the superior lateral border of T10 transverse process to target T10 medial branch needle was placed at the superior lateral border of the 11 transverse process. Each site then underwent positive sensory testing with 50 Hz and 0-1 V and negative motor testing at 2.5 Hz and 0-3 V with local stimulation but no radicular symptoms down the leg. Thereafter each sites underwent radiofrequency thermocoagulation at 80C for 90 seconds after injecting 1 mL of preservative-free 0.5% ropivacaine. Repeat radiofrequency ablation was done at each points after rotating the needle 180 with same setting. This same procedure was repeated twice on the LEFT side to target medial branch of T8, T9, T10 with the same settings after positive sensory,negative motor stimulation and infiltration of 1.0 ml 5% Ropivacaine at each site . RF needles were taken out. At the end of the procedure the skin was cleansed and Band-Aids were applied. Disposition patient tolerated the procedure well. No complication. She was placed in supine position and transferred to the recovery area in stable condition for observation and was discharged home from recovery room after meeting discharge criteria. Discharge instructions given to the patient by the staff. The patient were examined prior to discharge the patient will schedule a follow-up in the clinic in 2-4 weeks.
== END 2023-10-07 08:30 | disposition home or self-care (01) ==
LOC: ORPAIN 05:55
PROVIDERS: ATTEND Pain Medicine Interventional Pain Medicine
DX: M47.814 Spondylosis without myelopathy or radiculopathy, thoracic region (principal); M51.34 Other intervertebral disc degeneration, thoracic region; I34.1 Nonrheumatic mitral (valve) prolapse; J45.909 Unspecified asthma, uncomplicated; M79.7 Fibromyalgia; K21.9 Gastro-esophageal reflux disease without esophagitis; Z79.51 Long term (current) use of inhaled steroids; Z79.899 Other long term (current) drug therapy; Z88.2 Allergy status to sulfonamides; Z88.8 Allergy status to other drugs, medicaments and biological substances
CPT/HCPCS: 64633; 64634 ×2; J2250; J3010; J2795

== ENCOUNTER → 2023-10-27 | Outpatient (CLI) | payer BC ==
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
[2023-10-27 13:41] VITALS: BP 132/71; PULSE 78; RESP 15; TEMP 97.4
== END ==
LOC: PNWHC3 13:04
PROVIDERS: ATTEND Specialist
DX: M51.34 Other intervertebral disc degeneration, thoracic region (principal); M47.814 Spondylosis without myelopathy or radiculopathy, thoracic region; G89.29 Other chronic pain; Z87.891 Personal history of nicotine dependence; Z91.048 Other nonmedicinal substance allergy status; Z88.2 Allergy status to sulfonamides
CPT/HCPCS: 99211

== ENCOUNTER → 2024-03-21 | Outpatient (CLI) | payer BC ==
[2024-03-21 14:23] VITALS: BP 152/94; PULSE 68; RESP 18
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
== END ==
LOC: PNWHC3 13:33
PROVIDERS: ATTEND Specialist
DX: M47.814 Spondylosis without myelopathy or radiculopathy, thoracic region
CPT/HCPCS: 99211

== ENCOUNTER 2024-04-05 06:09 | Day surgery (SDC) | payer BC ==
[2024-03-30 13:32] VITALS: BMI 26.6
[2024-04-05] MEDS ORDERED: LACTATED RINGERS 1,000 ML IV SCH (06:31)
[2024-04-05 06:46] VITALS: TEMP 97
[2024-04-05] MEDS ORDERED: methylPREDNISolone ACETATE 40 MG/ML 1 ML VIAL ONE (07:31)
[2024-04-05] MEDS ORDERED: ROPIVACAINE 5MG/ML 20ML VIAL ONE (07:31)
--- NOTE | 2024-04-05 07:41 | P.PCN ---
Date of Procedure: 04/05/24 Procedure(s) Performed: Procedure= trigger point injections Thoracic paraspinal muscles bilaterally , 6 on the right side from T4- T10, and 4 on the left side from T4-T10 Preoperative diagnosis= 1-myofascial pain syndrome Thoracic paraspinal muscles 2-thoracic degenerative disc disease 3-thoracic facet arthropathy Postoperative diagnosis=Same as preop Diagnosis . Complication = none Condition= stable Anesthesia= none Indication for the procedure= patient complaining of lower and mid back pain , examination was positive for multiple trigger point in the Thoracic paraspinal muscles bilaterally and patient diagnosed with myofascial pain syndrome and is here to have trigger point injections Description of the procedure= procedure risk and benefits discussed with the patient, including but not limited, risk of infection and bleeding, and ALLERGIC reaction to the medication and not complete pain relief and patient agreed with the preceding patient taken to the operating room, placed in sitting position or standard monitors applied to the patient then after induction of anesthesia back prepped with chlorhexidine 3 times , then under sterile technique each of the trigger point that was marked in the preop holding area 6 on the right side Thoracic paraspinal muscles and 4 on the left side Thoracic paraspinal muscles each one of them injected with the 2 mL of the mixture of ropivacaine 0.5% 20 ML mixed with 40 mg of Depo-Medrol and 2 mL of the mixture injected at each trigger point after negative aspiration, using 25-gauge needle, injection done after negative aspiration under was no paresthesia during the injection patient tolerated the procedure well without any complications and he will follow up in the pain clinic in a few weeks
[2024-04-05 07:43] VITALS: BP 140/78; PULSE 66; RESP 16
== END 2024-04-05 07:55 | disposition home or self-care (01) ==
LOC: ORPAIN 06:09
PROVIDERS: ATTEND Specialist
DX: M54.14 Radiculopathy, thoracic region
CPT/HCPCS: 20553

== ENCOUNTER → 2024-04-19 | Outpatient (CLI) | payer BC ==
[2024-04-19 14:26] VITALS: BP 142/88; PULSE 78; RESP 18; TEMP 97.8
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
== END | disposition home or self-care (01) ==
LOC: PNWHC3 13:43
PROVIDERS: ATTEND Specialist
DX: M54.14 Radiculopathy, thoracic region
CPT/HCPCS: 99211

== ENCOUNTER 2024-05-08 06:00 | Day surgery (SDC) | payer BC ==
[2024-05-07 09:01] VITALS: BMI 26.2
[2024-05-08] MEDS: IV FLUID CONTINUATION 1,000 ML IV ONE ×2 (06:28→07:52)
[2024-05-08] MEDS: LACTATED RINGERS 1,000 ML BAG IV STA (06:31)
[2024-05-08 06:39] VITALS: PULSE 66; TEMP 97.4
[2024-05-08] MEDS ORDERED: fentaNYL (PF) 50 MCG/ML 2 ML AMP ONE (07:07)
[2024-05-08] MEDS ORDERED: MIDAZOLAM 2 MG/2 ML VIAL ONE (07:07)
[2024-05-08] MEDS ORDERED: ROPIVACAINE 5MG/ML 20ML VIAL ONE (07:07)
[2024-05-08 07:57] VITALS: RESP 14
--- NOTE | 2024-05-08 08:08 | P.PCN ---
Description of Procedure: Preprocedure diagnosis. 1. Thoracic spondylosis with facet joint arthropathy without myelopathy. 2. Thoracic degenerative disc disease. Postprocedure diagnosis. 1. Thoracic spondylosis with facet joint arthropathy without myelopathy. Space 2. Thoracic degenerative disc disease. Procedure.Bilateral radiofrequency thermocoagulation T7, T8, T9 medial branch, with fluoroscopic guidance (fluoroscopy images are available in the radiology department) (to Denervate the facet joint at the T8-9, T9-10 levels) Anesthesia. Moderate sedation with intravenous Versed 2 mg and fentanyl 100 g and local infiltration with ropivacaine 0.5%. Continuous, pulse ox, EKG, blood pressure, verbal communication was maintained with patient. EBL. minimal. Procedure indication. The patient with back pain secondary to thoracic facet arthropathy who he had more than 50% relief of her pain with previous diagnostic thoracic medial branch block with local anesthetics.The patient was seen and identified in the preoperative area. Risks, Benefits, complications, including but not limited to risk of infection, bleeding, nerve damage, lung puncture and pneumothorax, ALLERGIC reaction to the medications and no complete pain relief and alternatives were discussed with the patient, the patient admitted to proceed with the procedure and signed the consent. Procedure description/technique. Patient was taken to the OR and timeout was completed. The patient was placed in prone position on the procedure table. The thoracic area was prepped and draped in the usual sterile fashion. RIGHT side after injecting 5 ml of 1% Lidocaine subcutaneously 18-gauge 100 mm radiofrequency cannula with a 10 mm active tip was advanced. The injection level is confirmed with the use of the AP view before obtaining the trajectory view. The fluoroscope is then obliqued 10 degrees contralaterally and 10 degrees caudally from the AP view, so that the radiofrequency probe is positioned along the course of the medial branch nerve. The radiofrequency needle is placed parallel to the fluoroscopic beam with the use of this trajectory approach to target the superior lateral edge of the transverse process. The needle tip is advanced safely by alternating between AP and lateral views until it contacts and bisects the superior lateral edge of the transverse process. The needle tip is then walked off just superior and lateral to the edge of the transverse process keeping in mind so that the needle tip in line with the superior lateral edge of the transverse process to avoid the lung. On the right side to target T7 medial branch, the needle was placed in the superior lateral part of T8 transverse process, to target T8 medial branch, the needle was placed in the superior lateral border of T9 transverse process to target T9 medial branch needle was placed at the superior lateral border of the T10 transverse process. Each site then underwent positive sensory testing with 50 Hz and 0-1 V and negative motor testing at 2.5 Hz and 0-3 V with local stimulation but no radicular symptoms down the leg or intercostal nerve area of distribution. Thereafter each sites underwent radiofrequency thermocoagulation at 80C for 90 seconds after injecting 1 mL of preservative-free 0.5% ropivacaine. Repeat radiofrequency ablation was done at each points after rotating the needle 180 with same setting. This same procedure was repeated twice on the LEFT side to target medial branch of T7, T8, T9 with the same settings after positive sensory,negative motor stimulation and infiltration of 1.0 ml 5% Ropivacaine at each site . RF needles were taken out. At the end of the procedure the skin was cleansed and Band-Aids were applied. Disposition. Patient tolerated the procedure well. No complication. She was placed in supine position and transferred to the recovery area in stable condition for observation and was discharged home from recovery room after meeting discharge criteria. Discharge instructions given to the patient by the staff. The patient were examined prior to discharge the patient will schedule a follow-up in the clinic in 2-4 weeks.
[2024-05-08 08:10] VITALS: BP 122/68
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
== END 2024-05-08 08:24 | disposition home or self-care (01) ==
LOC: ORPAIN 06:00
PROVIDERS: ATTEND Pain Medicine Interventional Pain Medicine
DX: M47.814 Spondylosis without myelopathy or radiculopathy, thoracic region (principal); M51.34 Other intervertebral disc degeneration, thoracic region; Z88.2 Allergy status to sulfonamides
CPT/HCPCS: 64633; 64634; J2250; J3010; J2795; 99152; 99153

== ENCOUNTER → 2024-05-21 | Outpatient (CLI) | payer BC ==
[2024-05-21 14:44] VITALS: BP 126/75; PULSE 73; RESP 16
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
== END ==
LOC: PNWHC3 14:10
PROVIDERS: ATTEND Specialist
DX: M47.20 Other spondylosis with radiculopathy, site unspecified (principal); Z87.891 Personal history of nicotine dependence; Z91.048 Other nonmedicinal substance allergy status; Z88.2 Allergy status to sulfonamides
CPT/HCPCS: 99211

== ENCOUNTER 2024-05-25 09:42 | Day surgery (SDC) | payer BC ==
[~2024-05-25 09:42] MED LIST changes: -LIDOCAINE 1% (10MG/ML) FOR IV START INTRADERMA PRN
[2024-05-25 10:06] VITALS: RESP 18; TEMP 97.8
[2024-05-25] MEDS ORDERED: methylPREDNISolone ACETATE 40 MG/ML 1 ML VIAL ONE (10:53)
[2024-05-25] MEDS ORDERED: ROPIVACAINE 5MG/ML 20ML VIAL ONE (10:53)
--- NOTE | 2024-05-25 10:57 | P.PCN ---
Date of Procedure: 05/25/24 Procedure(s) Performed: Procedure= trigger point injections Thoracic paraspinal muscles bilaterally , 2 on the right side from T4- T10, and 1 on the left side from T9-T10 Preoperative diagnosis= 1-myofascial pain syndrome Thoracic paraspinal muscles 2-thoracic degenerative disc disease 3-thoracic facet arthropathy Postoperative diagnosis=Same as preop Diagnosis . Complication = none Condition= stable Anesthesia= none Indication for the procedure= patient complaining of lower and mid back pain , examination was positive for multiple trigger point in the Thoracic paraspinal muscles bilaterally and patient diagnosed with myofascial pain syndrome and is here to have trigger point injections Description of the procedure= procedure risk and benefits discussed with the patient, including but not limited, risk of infection and bleeding, and ALLERGIC reaction to the medication and not complete pain relief and patient agreed with the preceding patient taken to the operating room, placed in sitting position or standard monitors applied to the patient then after induction of anesthesia b ack prepped with chlorhexidine 3 times , then under sterile technique each of the trigger point that was marked in the preop holding area 2 on the right side Thoracic paraspinal muscles and 1 on the left side Thoracic paraspinal muscles each one of them injected with the 2 mL of the mixture of ropivacaine 0.5% 6 ML mixed with 40 mg of Depo-Medrol and 2 mL of the mixture injected at each trigger point after negative aspiration, using 25-gauge needle, injection done after negative aspiration under was no paresthesia during the injection patient tolerated the procedure well without any complications and he will follow up in the pain clinic in a few weeks
[2024-05-25 11:15] VITALS: BP 142/75; PULSE 63
== END 2024-05-25 11:17 | disposition home or self-care (01) ==
LOC: ORPAIN 09:42
PROVIDERS: ATTEND Specialist
DX: M51.34 Other intervertebral disc degeneration, thoracic region (principal); M46.94 Unspecified inflammatory spondylopathy, thoracic region; Z88.2 Allergy status to sulfonamides
CPT/HCPCS: 20553; J2795; J1010

== ENCOUNTER → 2024-06-11 | Outpatient (CLI) | payer BC ==
[2024-06-11 14:28] VITALS: BP 153/88; PULSE 75; RESP 16
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
== END ==
LOC: PNWHC3 14:13
PROVIDERS: ATTEND Specialist
DX: M47.24 Other spondylosis with radiculopathy, thoracic region (principal); Z88.2 Allergy status to sulfonamides; Z91.048 Other nonmedicinal substance allergy status; Z87.891 Personal history of nicotine dependence
CPT/HCPCS: 99211

== ENCOUNTER 2024-12-14 08:41 | Day surgery (SDC) | payer BC ==
[2024-12-13 12:08] VITALS: BMI 28.3
[2024-12-14 09:06] VITALS: RESP 16; TEMP 98.6
[2024-12-14] MEDS ORDERED: ROPIVACAINE 5MG/ML 20ML VIAL ONE (10:28)
[2024-12-14] MEDS ORDERED: IOPAMIDOL M200 10 ML VIAL ONE (10:28)
--- NOTE | 2024-12-14 10:40 | P.PCN ---
Date of Procedure: 12/14/24 Description of Procedure: LEFT SACROILIAC JOINT INJETION Procedure: Sacroiliac Joint Injection under biplanar fluoroscopy Preoperative diagnosis: lumbar postlaminectomy syndrome Postoperative diagnosis: , neck to be syndrome Indications: low back pain with weight-bearing Surgeon: Dr. Thuy CORTEZ Anesthesia: None The patient was seen and examined in the [facility]. Procedure risks and benefits were fully reviewed with the patient. Informed consent for procedure was obtained. The patient was taken into the office fluoroscopy procedure room and placed prone on the table. A pillow was placed under the abdomen to reduce lumbar lordosis. Vital signs were closely monitored during the procedure. AP and oblique views of the sacral spine and pelvis were obtained under fluoroscopy and entry site(s) over the sacroiliac joint(s) were marked. Skin was prepped with Betadine X 3 and draped in usual sterile manner. Sterile technique was observed throughout the procedure. Fluoroscopy was used to visualize the LEFT S.I. joint(s). 5 cc Lidocaine 1% was infiltrated with a 25 gauge needle over entry site(s) to achieve adequate local anesthesia of the skin and subcutaneous tissue. A 22 gauge spinal needle was introduced into the inferior one-third of the sacroiliac joint under fluoroscopic guidance. Isovue 0.5- in the joint. Dye was seen free flowing into the joint space. A mixture of 40 mg Kenalog in 2ml 0.5% Ropivacaine was injected after negative aspiration. The needle was then withdrawn intact. No complications were noted during the procedure. The patient tolerated the procedure well. The patient was placed in supine position and transferred to the recovery room for observation and remained in stable condition until discharged home. Home discharge instructions were given to the patient by the staff. patient will follow up for a caudal epidural with lysis of adhesions. Had a MRI that showed left S 1 impingement
[2024-12-14] MEDS ORDERED: LACTATED RINGERS 1,000 ML IV SCH (10:45)
[2024-12-14 10:46] VITALS: BP 146/80; PULSE 72
--- NOTE | 2024-12-14 11:23 | FL ---
EXAMINATION TYPE: FL guided pain mgmt statistic DATE OF EXAM: 12/14/2024 CLINICAL INDICATION: Female, 59 years old with history of M46.1 SI JOINT INJ; PHH, pain TECHNIQUE: Fluoroscopy. COMPARISON: None. FINDINGS: Fluoroscopic guidance was provided during pain relief procedure performed by Dr. Lamb. A total of 11.9 seconds of fluoroscopic time was utilized during the procedure and one image was acqu ired. Image acquired shows needle localization at sacroiliac joint. Surgical changes lower lumbar sp ine is partially imaged. Total DAP: [id number] mGym2. IMPRESSION: As Above. [facility], , 12/14/2024 11:21 AM
== END 2024-12-14 10:55 | disposition home or self-care (01) ==
LOC: ORPAIN 08:41
PROVIDERS: ATTEND Anesthesiology
DX: M96.1 Postlaminectomy syndrome, not elsewhere classified (principal); Z88.2 Allergy status to sulfonamides; Z88.8 Allergy status to other drugs, medicaments and biological substances
CPT/HCPCS: 27096; Q9966; J2795

== ENCOUNTER → 2025-01-03 | Outpatient (CLI) | payer BC ==
[2025-01-03 09:11] VITALS: BP 140/90; PULSE 74; RESP 17; TEMP 97.9
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
== END ==
LOC: PNWHC3 08:44
PROVIDERS: ATTEND Specialist
DX: M96.1 Postlaminectomy syndrome, not elsewhere classified (principal); Z91.048 Other nonmedicinal substance allergy status; Z88.2 Allergy status to sulfonamides; Z87.891 Personal history of nicotine dependence; M54.50 Low back pain, unspecified; G89.29 Other chronic pain
CPT/HCPCS: 99211

== ENCOUNTER → 2025-01-24 | Day surgery (SDC) | payer BC ==
[2025-01-22 14:03] VITALS: BMI 28.3
[~2025-01-24] MED LIST changes: +IOPAMIDOL M300 15ML VIAL ONE; +fentaNYL (PF) 50 MCG/ML 2 ML AMP ONE; +methylPREDNISolone ACETATE 80 MG/ML 1 ML VIAL ONE
[2025-01-24 07:10] VITALS: TEMP 97.5
[2025-01-24] MEDS: IV FLUID CONTINUATION 1,000 ML IV ONE ×2 (08:11→08:56)
--- NOTE | 2025-01-24 08:52 | P.PCN ---
Description of Procedure: Preprocedure diagnosis. Postlaminectomy syndrome. Lumbar radiculopathy. Postprocedure diagnosis. As above. Procedure done. Injection of radiocontrast material into caudal epidural space. Caudal epidurogram. Lysis of epidural scar with cauda/brevi cath catheter. Caudal epidural steroid injection. Anesthesia. IV Fentanyl 200 microgram. Local infiltration anesthesia. Continuous pulse ox, EKG, blood pressure, verbal communication was maintained with the patient in OR Time. Start .End . Blood loss. None. Indication. Discussed the procedure and possible complications which may include infection bleeding nerve damage paralysis and aggravation of pain. Patient understands all questions were answered. Procedure note. IV antibiotic was given preoperative area. After getting consent patient was taken to the OR in prone position. Back prepped with chlorhexidine x 3. After injecting 10 cc of plain 1% lidocaine subcutaneously, a 17-gauge needle with flexible introducer plastic cannula was introduced through the sacral hiatus into the caudal epidural space. 5 cc of Isovue 300 contrast was injected. Contrast was deficient on the left side at L5-S1 area. Needle was taken out only keeping the flexible introducer cannula. 19-gauge brevi cath was introduced through the introducer cannula multiple times. Again 3 cc of Isovue-M 300 contrast was injected. Previous deficient contrast area was filled out this time. 3 cc solution was injected through the bravi cath cannula now. Solution consists of 2 cc of preservative-free normal saline mixed with 1 cc of 80 mg Depo-Medrol. Both the catheter and introducer cannula was removed. Disposition. Patient tolerated the procedure well. No complication. Discharged home in stable condition.
[2025-01-24 09:15] VITALS: BP 127/74; PULSE 67; RESP 16
--- NOTE | 2025-01-24 09:30 | FL ---
EXAMINATION TYPE: FL guided pain mgmt statistic DATE OF EXAM: 01/24/2025 8:55 AM COMPARISON: Pre Operative Images if available both CT/MRI or plain film CLINICAL INDICATION: Female, 59 years old with history of CDL EPI WITH LYSIS; TECHNIQUE: FL guided pain mgmt statistic, multiple fluoroscopic images provided for procedure. DAP: 55.57 mGym2 Gycm2 uGym2 cGycm2 or equivalent. FINDINGS: IMPRESSION: 1. Report was generated for administrative purposes only. 2. Please see the operative/procedural note for further details. [facility], , 01/24/2025 9:28 AM
== END ==
LOC: ORPAIN 06:20
PROVIDERS: ATTEND Pain Medicine Interventional Pain Medicine
DX: M96.1 Postlaminectomy syndrome, not elsewhere classified (principal); M54.16 Radiculopathy, lumbar region
CPT/HCPCS: 62264; J0690; J3010; Q9967; J1010